=== PATIENT | male | born 1975 | race Caucasian/White ===

== ENCOUNTER 2018-02-28 14:25 | Emergency (ER) | payer BC ==
[2018-02-28 14:45] VITALS: BP 129/88; PULSE 79; RESP 18; TEMP 98.6
--- NOTE | 2018-02-28 15:16 | XR ---
EXAMINATION TYPE: XR ankle complete RT DATE OF EXAM: 02/28/2018 COMPARISON: None HISTORY: Rolled right ankle TECHNIQUE: Three-view right ankle FINDINGS: Soft tissue swelling is over the right ankle lateral malleolus. Very subtle lucency may tra nsverse the distal most fibula. Cortical disruption however is not clearly identified. Correlate for an occult fracture at this level. Follow-up exams can be performed to confirm possible occult fractur e. No additional areas suspicious for acute fractures evident. The ankle mortise is intact. IMPRESSION: 1. An occult fracture of the distal fibula is not excluded. There is overlying soft tissue swelling. Follow-up exam in 7-10 days could be confirmatory.
--- NOTE | 2018-02-28 15:27 | ED ---
Lower Extremity Injury HPI - General Chief Complaint: Extremity Injury, Lower Stated Complaint: rt ankle injury Time Seen by Provider: 02/28/18 14:47 Source: patient Mode of arrival: wheelchair Limitations: no limitations - History of Present Illness Initial Comments: 42-year-old male with history of previous bilateral ankle sprains presented for chief complaint of right ankle pain and swelling. Patient states that about hour prior to presentation he was raking leaves, when he rolled his right ankle while walking. Patient did state he fell forward, he denies hitting his head, loss of consciousness, injury to any other extremity. Patient denies any chest pain, shortness of breath, dizziness or any other associated symptoms prior to falling. Patient states a merely noticed pain along the lateral aspect of the right ankle. He states that the pain increased with weightbearing and range of motion. Patient denied any numbness, tingling, loss sensation, muscle weakness , pallor or coolness of the extremity. Patient stated he applied ice and took an ibuprofen. Patient presents emergency department for evaluation for possible fracture. Remainder of ROS negative, patient denies any recent fever, chills, shortness of breath, chest pain, back pain, abdominal pain, nausea or vomiting, numbness or tingling, dysuria or hematuria, constipation or diarrhea, headaches or visual changes, or any other complaints. Upon arrival pt appears well, no signs of acute distress. VS within acceptable limits. - Related Data Home Medications Medication Instructions Recorded Confirmed Albuterol Sulfate [Proventil Hfa] 2 puff INHALATION DIRECTED PRN 05/16/1504/11 Esomeprazole Magnesium [NexIUM] 40 mg PO DAILY 05/16/15 10/07/15 Ibuprofen [Motrin] 800 mg PO Q8HR PRN 05/18/15 10/07/15 Previous Rx's Medication Instructions Recorded Ibuprofen 800 mg PO Q8H PRN 7 Days #21 tablet 02/28/18 Allergies Allergy/AdvReac Type Severity Reaction Status Date / Time No Known Allergies Allergy Verified 02/28/18 14:45 Review of Systems ROS Statement: Those systems with pertinent positive or pertinent negative responses have been documented in the HPI. ROS Other: All systems not noted in ROS Statement are negative. Constitutional: Denies: fever, chills ENT: Denies: ear pain Respiratory: Denies: cough, dyspnea, wheezes, hemoptysis, stridor Cardiovascular: Denies: chest pain, palpitations, dyspnea on exertion Gastrointestinal: Denies: abdominal pain, nausea, vomiting, diarrhea, hematemesis Musculoskeletal: Reports: joint swelling (right ankle swelling/lateral aspect), arthralgia (right ankle pain) Neurological: Denies: headache, weakness, numbness, paresthesias, confusion, abnormal gait Past Medical History Past Medical History: Asthma, Blood Disorder, GERD/Reflux Additional Past Medical History / Comment(s): FACTOR 5 LEIDEN, HX OF DILATION OF ESOPHAGUS, History of Any Multi-Drug Resistant Organisms: None Reported Past Surgical History: Hernia Repair, Orthopedic Surgery Additional Past Surgical History / Comment(s): HX OF ORIF RIGHT WRIST WITH METAL Past Anesthesia/Blood Transfusion Reactions: No Reported Reaction Past Psychological History: No Psychological Hx Reported Smoking Status: Former smoker Past Alcohol Use History: Occasional Past Drug Use History: None Reported - Past Family History Father Family Medical History: Cancer Additional Family Medical History / Comment(s): STOMACH Mother Family Medical History: Deep Vein Thrombosis (DVT) Brother(s) Family Medical History: Deep Vein Thrombosis (DVT) General Exam - General Exam Comments Initial Comments: General: The patient is awake and alert, in no distress, and does not appear acutely ill. Eye: Pupils are equal, round and reactive to light, extra-ocular movements are intact. No nystagmus. There is normal conjunctiva bilaterally. No signs of icterus. Ears, nose, mouth and throat: There are moist mucous membranes and no oral lesions. Neck: The neck is supple, there is no tenderness or JVD. Cardiovascular: There is a regular rate and rhythm. No murmur, rub or gallop is appreciated. Respiratory: Lungs are clear to auscultation, respirations are non-labored, breath sounds are equal. No wheezes, stridor, rales, or rhonchi. Musculoskeletal: Upon inspection of the right ankle there is significant swelling along the lateral malleolus. Patient is painful to palpation over this region. Patient denies any pain to palpation of the medial malleolus or the proximal tibia and fibula. There is no tenderness to patient of the forefoot. Patient is able to fully range at the right ankle however he complains of pain with all movements especially inversion. Strength 5/5. Sensation intact of the feet/LE equally b/l. There is no pain to compression of the distal tibia and fibula DP pulses equal bilaterally 2+. Neurological: A&O x 3. CN II-XII intact, There are no obvious motor or sensory deficits. Coordination appears grossly intact. Speech is normal. Skin: Skin is warm and dry and no rashes or lesions are noted. Psychiatric: Cooperative, appropriate mood & affect, normal judgment. Limitations: no limitations Course Vital Signs 02/28/18 14:43 Temperature 98.6 F Pulse Rate 79 Respiratory 18 Rate Blood Pressure 129/88 Medical Decision Making - Medical Decision Making 42-year-old male with right ankle pain following injury concerning for possible fracture. X-rays returned negative however there is significant soft tissue swelling with possibility of occult distal fibula fracture. This was discussed with patient, patient was placed in a posterior mold with stirrups short leg splint. Repeat neruovascular exam unchanged. Pt was given non-weightbearing instructions and told to follow-up with orthopedic surgery in the next 1-2 days. Pt given prescription for crutches to use for ambulation. PE patient was neurovascularly intact, compartments were all soft and compressible. Patient had no tenderness to palpation of the proximal tibia and fibula, or pain with compression of the distal tibia/fibula concerning for high ankle sprain. Given PE findings I feel pt has a moderate to severe ankle sprain of the ATFL. Patient states she will take his prescription of ibuprofen 800 as well as perform Rice instructions at home. Patient verbalized understanding of plan, stating he'll make an appointment with orthopedic surgery tomorrow. Case discussed with Dr. Merritt at this time we feel pt is stable for discharge with f/u. Pt agrees with plan, denies questions at this time. Discharged in stable condition. Return parameters discussed at length the patient who verbalizes understanding prior to discharge. Disposition Clinical Impression: Severe ankle sprain Disposition: HOME SELF-CARE Condition: Good Instructions: Ankle Sprain (ED) Additional Instructions: Please use medication as discussed. Please follow-up with orthopedic surgery in the next 1-2 days, no weight bearing on the right ankle, please use crutches for ambulation. Please return to emergency room if the symptoms increase or worsen or for any other concerns. Prescriptions: Ibuprofen 800 mg PO Q8H PRN 7 Days #21 tablet PRN Reason: Pain Is patient prescribed a controlled substance at d/c from ED?: No Referrals: Dacia Mackay MD [Primary Care Provider] - 1-2 days Jennifer Levine PAC [PHYSICIAN SENIOR MORTGAGE LOAN PROCESSOR] - 1-2 days Time of Disposition: 15:26
== END 2018-02-28 15:52 | disposition home or self-care (01) ==
LOC: EC 14:25
DX: S93.401A Sprain of unspecified ligament of right ankle, initial encounter (principal); J45.909 Unspecified asthma, uncomplicated; K21.9 Gastro-esophageal reflux disease without esophagitis; Z87.891 Personal history of nicotine dependence; W19.XXXA Unspecified fall, initial encounter; Y93.H1 Activity, digging, shoveling and raking
CPT/HCPCS: 29515; 99283

== ENCOUNTER → 2020-04-13 | Outpatient (CLI) | payer BC ==
--- NOTE | 2020-04-13 09:16 | CT ---
EXAMINATION TYPE: CT chest wo con DATE OF EXAM: 04/13/2020 COMPARISON: None HISTORY: lung nodule, abn CXR, asthma symptoms CT DLP: 421.[address] of the chest was performed with lung and mediastinal window settings submitted. The la ck of contrast limits evaluation of the vascular, mediastinal and parenchymal structures including th e upper abdomen. LUNGS: The lungs are clear and free of infiltrate. No atelectasis. No pulmonary nodule or mass is de tected. No pleural effusion. No CT evidence of interstitial lung disease. MEDIASTINUM/ROSI: Thoracic aorta is of normal caliber with limited evaluation given lack of contrast . The heart is not enlarged. No evidence for mediastinal mass. No lymph nodes greater than 1cm. UPPER ABDOMEN: No significant abnormality is seen. OTHER: No significant other abnormality. IMPRESSION: 1. No visible pulmonary nodules identified.
== END | disposition home or self-care (01) ==
LOC: RADCTMAIN 08:50
PROVIDERS: ATTEND Internal Medicine
DX: R91.1 Solitary pulmonary nodule (principal)
CPT/HCPCS: 71250

== ENCOUNTER → 2022-01-27 | Outpatient (CLI) | payer BC ==
--- NOTE | 2022-01-27 12:15 | XR ---
EXAMINATION TYPE: XR lumbosacral spine min 4V DATE OF EXAM: 01/27/2022 11:40 AM INDICATION: Patient age:Male; 46 years old; Reason for study: G544 LUMBOSACRAL ROOT DISORDERS; COMPARISON: None TECHNIQUE: Frontal, lateral , bilateral oblique and coned in L5-S1 lateral views of the spine. FINDINGS: No evidence of any acute osseous pathology. No evidence of loss of vertebral body height i s seen. There is normal alignment of the lumbar vertebral bodies. No evidence of any acute osseous pa thology. Mild scattered disc space narrowing. Multilevel marginal osteophyte formation throughout the visualized spine. There is facet joint arthropathy throughout the spine. Scattered at least mild meera ral foraminal stenosis. IMPRESSION: 1. No acute fracture. 2. Mild multilevel disc degeneration.
== END | disposition home or self-care (01) ==
LOC: RADXRYALE 11:27
PROVIDERS: ATTEND Internal Medicine
DX: M51.37 Other intervertebral disc degeneration, lumbosacral region (principal)
CPT/HCPCS: 72110

== ENCOUNTER 2022-12-24 16:39 | Emergency (ER) | payer BC ==
[2022-12-24 16:45] VITALS: RESP 18; TEMP 98.6
[2022-12-24] MEDS ORDERED: GLUCAGON 1 MG/ML VIAL IVP STA (17:14)
--- NOTE | 2022-12-24 17:19 | ED ---
ENT HPI - General Chief complaint: ENT Stated complaint: ESOPHAGUS-STRICTURE Time Seen by Provider: 12/24/22 16:58 Source: patient Mode of arrival: ambulatory Limitations: no limitations - History of Present Illness Initial comments: 47-year-old male presenting to the ED with a chief complaint of foreign body sensation in throat. She states last EGD approximately 2 years ago which showed scarring of his esophagus secondary to acid reflux however no strictures or diverticulum or rings per patient. States today was eating steak when it became stuck in his throat. Denies difficulty breathing however notes that he is unable to swallow his spit due to this and every time he tries he ends up vomiting it. Denies chest pain or shortness of breath. No other complaints. - Related Data Home Medications Medication Instructions Recorded Confirmed Albuterol Sulfate [Proventil Hfa] 2 puff INHALATION DIRECTED PRN 05/16/15 10/07/15 Esomeprazole Magnesium [NexIUM] 40 mg PO DAILY 05/16/15 10/07/15 Ibuprofen [Motrin] 800 mg PO Q8HR PRN 05/18/15 10/07/15 Previous Rx's Medication Instructions Recorded Ibuprofen 800 mg PO Q8H PRN 7 Days #21 tablet 02/28/18 Allergies Allergy/AdvReac Type Severity Reaction Status Date / Time No Known Allergies Allergy Verified 12/24/22 16:45 Review of Systems ROS Statement: Those systems with pertinent positive or pertinent negative responses have been documented in the HPI. ROS Other: All systems not noted in ROS Statement are negative. Past Medical History Past Medical History: Asthma, Blood Disorder, GERD/Reflux Additional Past Medical History / Comment(s): FACTOR 5 LEIDEN, HX OF DILATION OF ESOPHAGUS, History of Any Multi-Drug Resistant Organisms: None Reported Past Surgical History: Hernia Repair, Orthopedic Surgery Additional Past Surgical History / Comment(s): HX OF ORIF RIGHT WRIST WITH METAL Past Anesthesia/Blood Transfusion Reactions: No Reported Reaction Past Psychological History: No Psychological Hx Reported Smoking Status: Never smoker Past Alcohol Use History: Occasional Past Drug Use History: None Reported - Past Family History Father Family Medical History: Cancer Additional Family Medical History / Comment(s): STOMACH Mother Family Medical History: Deep Vein Thrombosis (DVT) Brother(s) Family Medical History: Deep Vein Thrombosis (DVT) General Exam Limitations: no limitations General appearance: alert, in no apparent distress Neck exam: Present: normal inspection Respiratory exam: Present: normal lung sounds bilaterally Cardiovascular Exam: Present: regular rate, normal rhythm GI/Abdominal exam: Present: soft Neurological exam: Present: alert, oriented X3 Skin exam: Present: warm, dry Course Vital Signs 12/24/22 12/24/22 16:41 19:35 Temperature 98.6 F Pulse Rate 103 H 99 Respiratory 18 18 Rate Blood Pressure 158/108 142/105 O2 Sat by Pulse 98 98 Oximetry Medical Decision Making - Medical Decision Making Was pt. sent in by a medical professional or institution (, MOUNI[facility], [employer], urgent care, hospital, or correction...) When possible be specific @ -No Did you speak to anyone other than the patient for history (EMS, parent, family, police, friend...)? What history was obtained from this source @ -No Did you review nursing and triage notes (agree or disagree)? Why? @ -I reviewed and agree with nursing and triage notes Were old charts reviewed (outside hosp., previous admission, EMS record, old EKG, old radiological studies, urgent care reports/EKG's, correction records)? Report findings @ -No old charts were reviewed Differential Diagnosis (chest pain, altered mental status, abdominal pain women, abdominal pain men, vaginal bleeding, weakness, fever, dyspnea, syncope, h eadache, dizziness, GI bleed, back pain, seizure, CVA, palpatations, mental health, musculoskeletal)? @ -Inhaled foreign body, Zenker's diverticulum, Schatzki's ring, stricture EKG interpreted by me (3pts min.). @ -None X-rays interpreted by me (1pt min.). @ -None done CT interpreted by me (1pt min.). @ -None done U/S interpreted by me (1pt. min.). @ -None done What testing was considered but not performed or refused? (CT, X-rays, U/S, labs)? Why? @ -None What meds were considered but not given or refused? Why? @ -None Did you discuss the management of the patient with other professionals (professionals i.e. MOUNIKA Pizarro, [employer], lab, RT, psych nurse, high school social studies teacher, radiology technologist, teacher, licensed mortgage loan officer, child support case officer)? Give summary @ -Discussed with Dr. [facility] who accepted transfer of the patient. Was smoking cessation discussed for >3mins.? @ -No Was critical care preformed (if so, how long)? @ -No Were there social determinants of health that impacted care today? How? (Homelessness, low income, unemployed, alcoholism, drug addiction, transportation, low edu. Level, literacy, decrease access to med. care, usp, rehab)? @ -No Was there de-escalation of care discussed even if they declined (Discuss DNR or withdrawal of care, Hospice)? DNR status @ -No What co-morbidities impacted this encounter? (DM, HTN, Smoking, COPD, CAD, Cancer, CVA, ARF, Chemo, Hep., AIDS, mental health diagnosis, sleep apnea, morbid obesity)? @ -None Was patient admitted / discharged? Hospital course, mention meds given and route, prescriptions, significant lab abnormalities, going to OR and other pertinent info. @ -Transfer. Patient provided glucagon 2 mg IV, sublingual nitro tab, and 5 mg of Valium 2 with no relief of food bolus. Patient will be transferred to [facility] for GI services. Discussed plan of care with patient who is in agreement. Undiagnosed new problem with uncertain prognosis? @ -No Drug Therapy requiring intensive monitoring for toxicity (Heparin, Nitro, Insulin, Cardizem)? @ -No Were any procedures done? @ -No Diagnosis/symptom? @ -Food bolus, foreign body sensation in throat Acute, or Chronic, or Acute on Chronic? @ -Acute Uncomplicated (without systemic symptoms) or Complicated (systemic symptoms)? @ -Uncomplicated Side effects of treatment? @ -No Exacerbation, Progression, or Severe Exacerbation? @ -No Poses a threat to life or bodily function? How? (Chest pain, [place], [place], pneumonia, PE, COPD, DKA, ARF, appy, cholecystitis, CVA, Diverticulitis, Homicidal, Suicidal, threat to staff... and all critical care pts) @ -No Disposition Clinical Impression: Bolus impaction of digestive tract, Foreign body sensation in throat Disposition: OTHER INSTITUTION NOT DEFINED Condition: Good Referrals: Dacia Mackay MD [Primary Care Provider] - 1-2 days Time of Disposition: 19:40 - Out of Hospital Transfer - Req. Specs Out of Hospital Transfer - Requested Specifics: Other Emergency Center ([facility])
[2022-12-24] MEDS ORDERED: NITROGLYCERIN SL TABS 0.4 MG TAB SUBLINGUAL STA (18:27)
[2022-12-24 19:36] VITALS: BP 142/105; PULSE 99
== END 2022-12-24 20:32 | disposition other institution (70) ==
LOC: EC 16:39
DX: R09.89 Other specified symptoms and signs involving the circulatory and respiratory systems (principal); T18.128A Food in esophagus causing other injury, initial encounter; J45.909 Unspecified asthma, uncomplicated; K21.9 Gastro-esophageal reflux disease without esophagitis; Z79.899 Other long term (current) drug therapy
CPT/HCPCS: 99284; 96374; 96375; 96376; J1610; J3360

== ENCOUNTER 2024-09-30 12:48 | Emergency (ER) | payer BC ==
[2024-09-30 13:06] VITALS: TEMP 98.1
--- NOTE | 2024-09-30 14:09 | ED ---
General Adult HPI - General Chief complaint: Abdominal Pain Stated complaint: Abd pain Time Seen by Provider: 09/30/24 13:15 Source: patient, RN notes reviewed, old records reviewed Mode of arrival: ambulatory Limitations: no limitations - History of Present Illness Initial comments: This is a 49-year-old male who presents to the emergency department stating that he has this feeling of pain on the left side of his abdomen is about a 1 out of 10 he states that he has a pulsating sensation to it. Patient states it has been going on ever since he woke up this morning. Patient states he had a history of the last few days it comes and goes. Patient [place] any fever patient denies any nausea vomiting. Patient denies any diarrhea. Patient denies any other problems at this time. Patient denies dysuria hematuria urinary frequency - Related Data Home Medications Medication Instructions Recorded Confirmed Omeprazole Magnesium [PriLOSEC OTC] 20 mg PO BID 09/30/24 09/30/24 Allergies Allergy/AdvReac Type Severity Reaction Status Date / Time avocado Allergy Unknown Verified 09/30/24 16:05 banana Allergy Unknown Verified 09/30/24 16:05 Review of Systems ROS Statement: Those systems with pertinent positive or pertinent negative responses have been documented in the HPI. ROS Other: All systems not noted in ROS Statement are negative. Past Medical History Past Medical History: Asthma, Blood Disorder, GERD/Reflux Additional Past Medical History / Comment(s): FACTOR 5 LEIDEN, HX OF DILATION OF ESOPHAGUS, History of Any Multi-Drug Resistant Organisms: None Reported Past Surgical History: Hernia Repair, Orthopedic Surgery Additional Past Surgical History / Comment(s): HX OF ORIF RIGHT WRIST WITH METAL Past Anesthesia/Blood Transfusion Reactions: No Reported Reaction Past Psychological History: No Psychological Hx Reported Smoking Status: Never smoker Past Alcohol Use History: Occasional Past Drug Use History: None Reported - Past Family History Father Family Medical History: Cancer Additional Family Medical History / Comment(s): STOMACH Mother Family Medical History: Deep Vein Thrombosis (DVT) Brother(s) Family Medical History: Deep Vein Thrombosis (DVT) General Exam - General Exam Comments Initial Comments: GENERAL: Patient is well-developed and well-nourished. Patient is nontoxic and well- hydrated and is in no acute distress. ENT: Neck is soft and supple. No significant lymphadenopathy is noted. Oropharynx is clear. Moist mucous membranes. Neck has full range of motion without eliciting any pain. EYES: The sclera were anicteric and conjunctiva were pink and moist. Extraocular movements were intact and pupils were equal round and reactive to light. Eyelids were unremarkable. PULMONARY: Unlabored respirations. Good breath sounds bilaterally. No audible rales rhonchi or wheezing was noted. CARDIOVASCULAR: There is a regular rate and rhythm without any murmurs gallops or rubs. ABDOMEN: Soft and nontender with normal bowel sounds. Patient has no hernia noted SKIN: Skin is clear with no lesions or rashes and otherwise unremarkable. NEUROLOGIC: Patient is alert and oriented x3. Cranial nerves II through XII are grossly intact. Motor and sensory are also intact. Normal speech, volume and content. Symmetrical smile. MUSCULOSKELETAL: Normal extremities with adequate strength and full range of motion. LYMPHATICS: No significant lymphadenopathy is noted PSYCHIATRIC: Normal psychiatric evaluation. Limitations: no limitations Course Vital Signs 09/30/24 13:01 Temperature 98.1 F Pulse Rate 99 Respiratory 18 Rate Blood Pressure 134/79 O2 Sat by Pulse 97 Oximetry Medical Decision Making - Medical Decision Making Was pt. sent in by a medical professional or institution (, PA, DATA LIBRARIAN, urgent care, hospital, or assisted...) When possible be specific @ -No Did you speak to anyone other than the patient for history (EMS, parent, family, police, friend...)? What history was obtained from this source @ -No Did you review nursing and triage notes (agree or disagree)? Why? @ -I reviewed and agree with nursing and triage notes Were old charts reviewed (outside hosp., previous admission, EMS record, old EKG, old radiological studies, urgent care reports/EKG's, assisted records)? Report findings @ -No old charts were reviewed Differential Diagnosis? @ -Differential Abdominal Pain Men: Appendicitis, cholecystitis, diverticulosis, ischemic bowel, pancreatitis, hepatitis, UTI, gastroenteritis, AAA, incarcerated hernia, bowel obstruction, constipation, inflammatory bowel, hepatitis, peptic ulcer disease, splenic infarction, perforated viscus, testicular torsion, this is not meant to be an all-inclusive list EKG interpreted by me (3pts min.). @ -As above X-rays interpreted by me (1pt min.). @ -None done CT interpreted by me (1pt min.). @ -None done U/S interpreted by me (1pt. min.). @ -Ultrasound showed no aortic aneurysm. Ultrasound showed no abnormality of the renal system What testing was considered but not performed or refused? (CT, X-rays, U/S, labs)? Why? @ -None What meds were considered but not given or refused? Why? @ -None Did you discuss the management of the patient with other professionals (professionals i.e. , PA, DATA LIBRARIAN, lab, RT, psych nurse, social media editor, material control specialist, teacher, nuclear security officer, correctional case manager)? Give summary @ -No Was smoking cessation discussed for >3mins.? @ -No Was critical care preformed (if so, how long)? @ -No Were there social determinants of health that impacted care today? How? (Homelessness, low income, unemployed, alcoholism, drug addiction, transportation, low edu. Level, literacy, decrease access to med. care, correction, rehab)? @ -No Was there de-escalation of care discussed even if they declined (Discuss DNR or withdrawal of care, Hospice)? DNR status @ -No What co-morbidities impacted this encounter? (DM, HTN, Smoking, COPD, CAD, Cancer, CVA, ARF, Chemo, Hep., AIDS, mental health diagnosis, sleep apnea, morbid obesity)? @ -None Was patient admitted / discharged? Hospital course, mention meds given and route, prescriptions, significant lab abnormalities, going to OR and other pertinent info. @ -Patient was resting comfortably throughout his ED course there is no pain on palpation. Patient will be discharged home. Undiagnosed new problem with uncertain prognosis? @ -No Drug Therapy requiring intensive monitoring for toxicity (Heparin, Nitro, I nsulin, Cardizem)? @ -No Were any procedures done? @ -No Diagnosis/symptom? @ -Abdominal pain Acute, or Chronic, or Acute on Chronic? @ -Acute Uncomplicated (without systemic symptoms) or Complicated (systemic symptoms)? @ -Complicated Side effects of treatment? @ -No Exacerbation, Progression, or Severe Exacerbation? @ -No Poses a threat to life or bodily function? How? (Chest pain, [place], [place], pneumonia, PE, COPD, DKA, ARF, appy, cholecystitis, CVA, Diverticulitis, Homicidal, Suicidal, threat to staff... and all critical care pts) @ -No - Lab Data Result diagrams: 09/30/24 14:27 09/30/24 14:27 Lab Results 09/30/24 09/30/24 09/30/24 Range/Units 14:27 14:27 14:30 WBC 8.22 (4.50-10.00) 10*3/uL RBC 5.59 (4.40-5.60) 10*6/uL Hgb 16.0 (13.0-17.0) g/dL Hct 46.2 (39.6-50.0) % MCV 82.6 (80.0-97.0) fL MCH 28.6 (27.0-32.0) pg MCHC 34.6 (32.0-37.0) g/dL Plt Count 334 (140-440) 10*3/uL MPV 8.6 L (9.5-12.2) fL Immature Gran % (Auto) 0.1 % Neutrophils % 54.1 % Lymphocytes % 31.9 % Monocytes % 9.4 % Eosinophils % 3.5 % Basophils % 1.0 % Immature Gran # 0.01 (0.00-0.04) 10*3/uL Neutrophils # 4.45 (1.80-7.70) 10*3/uL Lymphocytes # 2.62 (0.90-5.00) 10*3/uL Monocytes # 0.77 (0.20-1.00) 10*3/uL Eosinophils # 0.29 (0.04-0.35) 10*3/uL Basophils # 0.08 (0.00-0.10) 10*3/uL Sodium 138 (137-145) mmol/L Potassium 4.2 (3.5-5.1) mmol/L Chloride 103 (98-107) mmol/L Carbon Dioxide 25 (22-30) mmol/L Anion Gap 10 mmol/L BUN 15 (9-20) mg/dL Creatinine 1.00 (0.66-1.25) mg/dL Est GFR (CKD-EPI)AfAm >90 (>60 ml/min/1.73 sqM) Est GFR (CKD-EPI)NonAf 87 (>60 ml/min/1.73 sqM) Glucose 105 H (74-99) mg/dL Calcium 9.4 (8.4-10.2) mg/dL Total Bilirubin 0.7 (0.2-1.3) mg/dL AST 27 (17-59) U/L ALT 25 (4-49) U/L Alkaline Phosphatase 79 (38-126) U/L Total Protein 6.7 (6.3-8.2) g/dL Albumin 4.2 (3.5-5.0) g/dL Amylase 39 (30-110) U/L Lipase 59 (23-300) U/L Urine Color Yellow Urine Appearance Clear (Clear) Urine pH 6.0 (5.0-8.0) Ur Specific [place] 1.018 (1.001-1.035) Urine Protein Negative (Negative) Urine Glucose (UA) Negative (Negative) Urine Ketones Negative (Negative) Urine Blood Small H (Negative) Urine Nitrite Negative (Negative) Urine Bilirubin Negative (Negative) Urine Urobilinogen <2.0 (<2.0) mg/dL Ur Leukocyte Esterase Negative (Negative) Urine RBC 9 H (0-5) /hpf Urine WBC 2 (0-5) /hpf Urine Bacteria Rare H (None) /hpf Urine Mucus Rare H (None) /hpf Disposition Clinical Impression: Abdominal pain Disposition: HOME SELF-CARE Instructions (If sedation given, give patient instructions): Abdominal Pain (ED) Is patient prescribed a controlled substance at d/c from ED?: No Referrals: Dacia Mackay MD [Primary Care Provider] - 1-2 days Time of Disposition: 16:24
[2024-09-30 14:41] LABS: Basophils # (A) 0.08 10*3/uL (0.00-0.10); Eosinophils # (A) 0.29 10*3/uL (0.04-0.35); Eosinophils % (A) 3.5 %; HCT 46.2 % (39.6-50.0); Lymphocytes # (A) 2.62 10*3/uL (0.90-5.00); Lymphocytes % (A) 31.9 %; MCH 28.6 pg (27.0-32.0); MCHC 34.6 g/dL (32.0-37.0); MCV 82.6 fL (80.0-97.0); Mean Platelet Volume 8.6 fL (9.5-12.2); Monocytes # (A) 0.77 10*3/uL (0.20-1.00); Monocytes % (A) 9.4 %; Neutrophils # (A) 4.45 10*3/uL (1.80-7.70); Neutrophils % (A) 54.1 %; Platelet Count 334 10*3/uL (140-440); RBC 5.59 10*6/uL (4.40-5.60); RDW 12.8 % (11.5-14.5); WBC 8.22 10*3/uL (4.50-10.00)
[2024-09-30 14:45] LABS: Appearance,Urine Clear (Clear); Bacteria,Urine Rare /hpf; Bilirubin,Urine Negative (Negative); Blood,Urine Small (Negative); Color,Urine Yellow; Glucose,Urine (UA) Negative (Negative); Ketones,Urine Negative (Negative); Leukocyte Esterase,Urine Negative (Negative); Mucus,Urine Rare /hpf; Nitrite,Urine Negative (Negative); Protein,Urine Negative (Negative); RBC,Urine 9 /hpf (0-5); Specific Gravity,Urine 1.018 (1.001-1.035); Urobilinogen,Urine <2.0 mg/dL (<2.0); WBC,Urine 2 /hpf (0-5)
[2024-09-30 14:53] LABS: ALT 25 U/L (4-49); AST 27 U/L (17-59); African American GFR (CKD) >90 (>60 ml/min/1.73 sqM); Albumin 4.2 g/dL (3.5-5.0); Alkaline Phosphatase 79 U/L (38-126); Amylase 39 U/L (30-110); Anion Gap 10 mmol/L; Blood Urea Nitrogen 15 mg/dL (9-20); Calcium 9.4 mg/dL (8.4-10.2); Carbon Dioxide 25 mmol/L (22-30); Chloride 103 mmol/L (98-107); Glucose 105 mg/dL (74-99); Lipase 59 U/L (23-300); Non-African American GFR(CKD) 87 (>60 ml/min/1.73 sqM); Potassium 4.2 mmol/L (3.5-5.1); Sodium 138 mmol/L (137-145); Total Bilirubin 0.7 mg/dL (0.2-1.3); Total Protein 6.7 g/dL (6.3-8.2)
[2024-09-30] MEDS: NICOTINE GUM (POLACRILEX) 2 MG GUM BUCCAL STA (15:35)
--- NOTE | 2024-09-30 16:13 | US ---
EXAMINATION TYPE: US Aorta Screening DATE OF EXAM: 09/30/2024 COMPARISON: NONE CLINICAL INDICATION: Male, 49 years old with history of Abdominal pain left-sided; left side palpable mass TECHNIQUE: Multiple sonographic images of the abdominal aorta are obtained with grayscale and color D oppler imaging. FINDINGS: EXAM MEASUREMENTS: Abdominal Aorta: Proximal: 2.5x2.5cm Mid: 2.0x2.1cm Distal: 1.9x1.8cm Bifurcation: Right Iliac: 1.3x1.3cm Left Iliac: 1.5x1.3cm BORING INSPECTOR NOTES: exam limited by bowel gas. No sign of AAA IMPRESSION: 1. No suspicious changes for aneurysmal dilatation abdominal aorta screening [email or web address] [facility], , 09/30/2024 4:11 PM
--- NOTE | 2024-09-30 16:19 | US ---
EXAMINATION TYPE: US abdomen limited DATE OF EXAM: 09/30/2024 COMPARISON: NONE CLINICAL INDICATION: Male, 49 years old with history of Abdominal pain left-sided; left side pain TECHNIQUE: Multiple sonographic images of the left upper quadrant are obtained. FINDINGS: EXAM MEASUREMENTS: Spleen: 10.3 cm Left Kidney: 11.1x6.1x5.8 cm GRADES 1 THROUGH 5 TEACHER NOTES: 1. Spleen: wnl 2. Left Kidney: wnl Area of pain scanned. No discrete abnormality noted. IMPRESSION: 1. Negative left upper quadrant ultrasound [facility], , 09/30/2024 4:17 PM
[2024-09-30 16:37] VITALS: BP 126/98; PULSE 83; RESP 16
== END 2024-09-30 16:36 | disposition home or self-care (01) ==
LOC: EC 12:48
DX: R10.12 Left upper quadrant pain (principal); Z91.018 Allergy to other foods
CPT/HCPCS: 36415; 76705; 76706; 80053; 81001; 82150; 83690; 85025; 99284